=== PATIENT | male | born 1950 | race Caucasian/White ===

== ENCOUNTER → 2022-09-06 10:01 | Outpatient (CLI) | payer MEDICARE, MEDICAID, SELFPAY ==
[2022-09-06 11:03] LABS: Add Manual Diff / Slide Review NO; Basophils Absolute Auto 100 /uL (0-100); Eosinophils Absolute Auto 300 /uL (0-450); Eosinophils Percent Auto 5.3 % (2-4); Hematocrit 41.7 % (41-53); Hemoglobin 14.2 g/dL (13.5-17.5); Lymphocytes Absolute Auto 1000 /uL (1100-4500); Lymphocytes Percent Auto 19.1 % (25-40); Mean Corpuscular HGB Conc 34.2 % (30-36); Mean Corpuscular Hemoglobin 31.9 PG (26-34); Mean Corpuscular Volume 93.3 fL (80-100); Monocytes Absolute Auto 500 /uL (0-900); Neutrophils Absolute Auto 3300 /uL (1500-7000); Neutrophils Percent Auto 64.6 % (50-75); Platelet Count 146 X10^3/uL (150-400); Red Blood Cell Count 4.47 X10^6/uL (4.5-5.9); White Blood Cell Count 5.1 X10^3/uL (4.5-11.0)
[2022-09-06 11:23] LABS: Erythrocyte Sedimentation Rate 10 MM/HR (0-15)
[2022-09-06 12:02] LABS: Albumin 4.1 g/dL (3.5-5.0); Albumin Globulin Ratio 1.3 (1.0-2.8); Aspartate Aminotransferase 26 IU/L (17-59); Bilirubin Total 0.7 mg/dL (0.2-1.3); Carbon Dioxide 22 mmol/L (22-32); Chloride 109 mmol/L (98-107); Estimated Glomerular Filt Rate > 60 mL/min (>60); Globulin 3.1 g/dL (1.7-4.1); HEMOLYSIS < 15 (0-50); Sodium 138 mmol/L (137-145); Total Protein 7.2 g/dL (6.3-8.2)
[2022-09-06 12:52] LABS: Vitamin B12 393 pg/mL (239-931)
[2022-09-06 20:55] LABS: Alanine Aminotransferase 21 IU/L (<50); Alkaline Phosphatase 62 U/L (38-126); BUN Creatinine Ratio 37.3 (6-22); Blood Urea Nitrogen 22 mg/dL (9-20); Calcium 9.4 mg/dL (8.4-10.2); Glucose 105 mg/dL (80-110)
[2022-09-08 13:26] LABS: TSH w/ Reflex to FT4 7.34 uIU/mL (0.47-4.68)
[2022-09-08 14:27] LABS: Free T4, Direct Thyroxine 1.04 ng/dL (0.78-2.19)
[2022-09-08 17:59] LABS: Cholesterol 255 mg/dL (140-199); HDL Cholesterol 72 mg/dL (40-60); LDL Cholesterol Calculated 166 mg/dL (<100); Triglycerides 87 mg/dL (35-150)
[2022-09-08 18:36] LABS: Ferritin 71 ng/mL (18-464)
== END ==
PROVIDERS: PCP Family Medicine; Referring Provider Family Medicine; Visit Provider Family Medicine
DX: G25.81 Restless legs syndrome (principal); F43.10 Post-traumatic stress disorder, unspecified; G62.9 Polyneuropathy, unspecified; Z77.098 Contact with and (suspected) exposure to other hazardous, chiefly nonmedicinal, chemicals
CPT/HCPCS: 36415; 80053; 80061; 82607; 82728; 84439; 84443; 85025; 85651

== ENCOUNTER → 2022-12-08 09:30 | Outpatient (CLI) | payer MEDICARE, MEDICAID, SELFPAY ==
--- NOTE | 2022-12-08 09:32 | DI.RAD.S_ITS ---
PROCEDURE: XR HIP W PEL IF DONE RT 2V INDICATIONS: rt hip pain, previous replacement TECHNIQUE: AP pelvis with AP and lateral view(s) of the right hip(s). COMPARISON: None. FINDINGS: Bones: No fractures or dislocations. Pelvic ring appears intact. No suspicious bony lesions. Bilateral total hip arthroplasties. No evidence of hardware failure or loosening. Soft tissues: The visualized bowel gas pattern is normal. No suspicious soft tissue calcifications. IMPRESSION: Bilateral total hip arthroplasties. No evidence of hardware failure or loosening. No evidence of acute fracture or dislocation involving the pelvis and right hip. Dictated by: Massimo Ledesma M.D. on 12/08/2022 at 11:19 Approved by: Massimo Ledesma M.D. on 12/08/2022 at 11:20
--- NOTE | 2022-12-08 09:32 | DI.RAD.S_ITS ---
PROCEDURE: XR LUMBAR SPINE MIN 4V INDICATIONS: low back pain, leg numbness TECHNIQUE: 5 views of the lumbar spine were acquired, including bilateral oblique views. COMPARISON: None. FINDINGS: Bones: 5 nonrib-bearing vertebrae are present. Moderate dextro curvature is centered L1-L2. Extensive facet arthropathy. Suspect canal stenosis. No vertebral body compression fractures. No suspicious bony lesions. Soft tissues: Overlying bowel gas pattern is normal. No suspicious soft tissue calcifications. Oblique images: No pars defects. IMPRESSION: Dextrocurvature, extensive facet arthropathy. Suspect canal stenosis. Dictated by: Massimo Ledesma M.D. on 12/08/2022 at 11:25 Approved by: Massimo Ledesma M.D. on 12/08/2022 at 11:26
== END ==
PROVIDERS: PCP Family Medicine; Referring Provider Family Medicine; Visit Provider Family Medicine
DX: M47.816 Spondylosis without myelopathy or radiculopathy, lumbar region (principal); M25.551 Pain in right hip; M54.50 Low back pain, unspecified; G89.29 Other chronic pain; Z96.643 Presence of artificial hip joint, bilateral
CPT/HCPCS: 72110; 73502

== ENCOUNTER 2023-03-29 10:52 | Emergency (ER) | payer MEDICARE, MEDICAID, SELFPAY ==
[2023-03-29] VITALS (12 sets, daily range): BP systolic 116–149; BP diastolic 60–81; PULSE 95–110; RESP 17–25; TEMP 37.2–37.3; O2SAT 92–97; BMI 30.7
--- NOTE | 2023-03-29 11:02 | DI.RAD.S_ITS ---
PROCEDURE: XR CHEST 1V INDICATIONS: suspected sepsis TECHNIQUE: One view of the chest was acquired. COMPARISON: None. FINDINGS: Surgical changes and devices: None. Lungs and pleura: Patchy right upper lobe opacities are suspicious for pneumonia. No pleural effusion or pneumothorax. Left lung is clear. Mediastinum: Mediastinal contours appear normal. Heart size is normal. Bones and chest wall: No suspicious bony lesions. Overlying soft tissues appear unremarkable. IMPRESSION: Right upper lobe opacities are suspicious for pneumonia. Approved by: Can Herrera M.D. on 03/29/2023 at 12:20
[2023-03-29 11:56] LABS: Hematocrit 44.7 % (41-53); Hemoglobin 15.3 g/dL (13.5-17.5); Mean Corpuscular HGB Conc 34.1 % (30-36); Mean Corpuscular Hemoglobin 30.8 PG (26-34); Mean Corpuscular Volume 90.4 fL (80-100); Platelet Count 139 X10^3/uL (150-400); Red Blood Cell Count 4.95 X10^6/uL (4.5-5.9); Red Cell Distribution Width 13.6 % (11.6-14.8); White Blood Cell Count 14.5 X10^3/uL (4.5-11.0)
[2023-03-29] MEDS: SODIUM CHLORIDE 0.9% 1,000 ML 1000 ML IV (11:56)
[2023-03-29 12:02] LABS: Add Manual Diff / Slide Review YES
--- NOTE | 2023-03-29 12:02 | PC.NURSE ---
Patient c/o chills for 5 days. Also states abdominal pain, nausea. One episode of vomiting yesterday. Denies chest pain, shortness of breath
[2023-03-29 12:13] LABS: Lactate (Lactic Acid) 1.7 mmol/L (0.7-2.1)
[2023-03-29 12:14] LABS: Alanine Aminotransferase 46 IU/L (<50); Albumin 3.8 g/dL (3.5-5.0); Alkaline Phosphatase 72 U/L (38-126); Aspartate Aminotransferase 49 IU/L (17-59); BUN Creatinine Ratio 42.3 (6-22); Bilirubin Total 1.1 mg/dL (0.2-1.3); Blood Urea Nitrogen 30 mg/dL (9-20); Carbon Dioxide 25 mmol/L (22-32); Chloride 98 mmol/L (98-107); Estimated Glomerular Filt Rate > 60 mL/min (>60); Globulin 3.8 g/dL (1.7-4.1); Glucose 141 mg/dL (80-110); Lipase 12 U/L (23-300); Sodium 132 mmol/L (137-145); Total Protein 7.6 g/dL (6.3-8.2)
[2023-03-29 12:15] LABS: HEMOLYSIS 88 (0-50); Neutrophils Absolute Manual 12905 /uL (3000-5900); Total Cells Counted 100
[2023-03-29 12:16] LABS: RBC Morphology Normal Morphology
[2023-03-29 12:21] LABS: INR 1.4 (0.9-1.3); Prothrombin Time 16.5 SECONDS (10.1-12.7)
[2023-03-29 12:24] LABS: PTT Partial Thromboplastin Tim 35 SECONDS (26-36)
--- NOTE | 2023-03-29 12:27 | ED_ITS ---
HPI - Fever General Chief Complaint: Fever Stated Complaint: vomiting/fever t-4 Time Seen by Provider: 03/29/23 11:15 Source: patient Mode of arrival: Wheelchair History of Present Illness HPI Narrative: Patient is a 72-year-old male history of hyperlipidemia, marijuana use, per referral neuropathy PTSD presenting today with fever body aches and weakness. He reports that 3 days ago he had shivers and sweats. He feels generally weak he has poor appetite. No significant cough or shortness of breath. He feels nauseated with some vomiting. Not really able to eat anything. No significant abdominal pain or back pain. No headache. Denies any painful frequent urination. Related Data Previous Rx's Medication Instructions Recorded ropinirole 4 mg tablet 4 mg PO BID RLS #60 tabs 12/03/22 ropinirole 2 mg tablet,extended 2 mg PO DAILY #30 tabs 12/29/22 release 24 hr celecoxib 100 mg capsule (Celebrex) 100 mg PO BID PRN pain #180 caps 02/01/23 pregabalin 150 mg capsule (Lyrica) 150 mg PO BEDTIME #60 caps 02/28/23 tramadol 50 mg tablet 50 mg PO BID PRN pain #30 tabs 02/28/23 amoxicillin 500 mg capsule 1,000 mg PO TID 5 days #30 caps 03/29/23 azithromycin 250 mg tablet See Rx Instructions PO .COMPLEX #6 03/29/23 tabs ondansetron 4 mg disintegrating 4 mg PO Q8H PRN nausea and 03/29/23 tablet vomiting #10 tabs Allergies Allergy/AdvReac Type Severity Reaction Status Date / Time Beta-Blockers Allergy Unknown Verified 03/29/23 10:58 (Beta-Adrenergic Bloc diphenhydramine Allergy Unknown Verified 03/29/23 10:58 Review of Systems Review of Systems ROS Unobtainable: All systems reviewed & are unremarkable except as noted in HPI and below Patient History Medical History Agent orange exposure Arthritis Hyperlipidemia Marijuana use Peripheral neuropathy PTSD (post-traumatic stress disorder) RLS (restless legs syndrome) Subclinical hypothyroidism Social History Smoking Status: Never smoker Smoking Status: Never smoker alcohol intake frequency: holidays/special occasions only Substance Use Type: does not use Exam Initial Vital Signs Initial Vital Signs: Vital Signs Temperature 99.0 F 03/29/23 10:58 Pulse Rate 110 H 03/29/23 10:58 Respiratory Rate 17 03/29/23 10:58 Blood Pressure 144/77 H 03/29/23 10:58 Pulse Oximetry 96 03/29/23 10:58 Oxygen Delivery Method Room Air 03/29/23 10:58 GENERAL: Alert pleasant 82-year-old male appears slightly weak and in no acute distress. HEENT: Head atraumatic,EOMI, pupils reactive, face symmetric, moist mucous m embranes CARDIOVASCULAR: Regular rate and rhythm without murmurs, rubs or gallops. RESPIRATORY: Mildly coarse at bases no conversational dyspnea ABDOMEN: Soft, nontender. Normoactive bowel sounds all 4 quadrants. No guarding or rebound. EXTREMITIES: Normal range of motion, no clubbing or edema. Neurovascularly intact NEUROLOGICAL: Alert and oriented x4. SKIN: Warm, dry, no laceration, no petechiae, no rashes or lesions. Scores CURB-65 Confusion: No BUN >19mg/dL (>7mmol/L): Yes Respiratory rate greater or equal to 30: No SBP <90mmHg or DBP less or equal to 60mmHg: No Age 65 or Older: Yes CURB-65 Total: 2 Score 0-1 Outpatient care, Score 2 Inpt vs. Obs, Score 3 or over Inpt admit with ICU for score of 4-5 Course Orders Ordered: ED Orders 03/29/23 11:02 XR chest 1V Stat RT Consult Eval and Treat NOW 03/29/23 11:21 EKG-12 Lead Stat 03/29/23 11:37 Complete Blood Count AUTO DIFF Stat Comprehensive Metabolic Panel Stat Lactate (Lactic Acid) Stat Lipase Stat PTT Partial Thromboplastin Georges Stat Procalcitonin Stat Prothrombin Time INR Stat 03/29/23 12:09 Blood Culture Stat 03/29/23 12:18 Ictotest Urine Stat UA Complete [Urinalysis and Microscopic] Stat 03/29/23 12:34 Covid-19 + FLU A/B + RSV - PCR Stat Discontinued Medications Acetaminophen (Acetaminophen 325 Mg Tablet) 975 mg PO NOW ONE Stop: 03/29/23 12:35 Last Admin: 03/29/23 12:49 Dose: 975 mg Documented By: LC Sodium Chloride (Normal Saline 0.9%) 1,000 mls @ 1,000 mls/hr IV BOLUS ONE Stop: 03/29/23 12:01 Last Infusion: 03/29/23 13:26 Dose: 0 mls/hr Documented By: Admin: 03/29/23 11:56 Dose: 1,000 mls/hr Documented By: MARÍA(2) Ceftriaxone Sodium 1,000 mg/ (Sodium Chloride) 100 mls @ 200 mls/hr IV NOW ONE Stop: 03/29/23 12:35 Last Infusion: 03/29/23 13:26 Dose: 0 mls/hr Documented By: Admin: 03/29/23 12:50 Dose: 200 mls/hr Documented By: QUINN Azithromycin 500 mg/ Dextrose 250 mls @ 250 mls/hr IV NOW ONE Stop: 03/29/23 12:35 Last Infusion: 03/29/23 14:58 Dose: 0 mls/hr Documented By: AMSanthosh Admin: 03/29/23 13:39 Dose: 250 mls/hr Documented By: AMU Ondansetron HCl (Ondansetron 4 Mg/2 Ml Inj) 4 mg IV NOW PRN PRN Reason: Nausea And Vomiting Vital Signs Vital signs: Vital Signs - 8 hr 03/29/23 14:07 03/29/23 12:00 03/29/23 14:07 Temperature 99.2 F Pulse Rate 100 H 102 H 98 H Respiratory Rate 22 Blood Pressure 123/60 137/66 Pulse Oximetry 93 94 93 Oxygen Delivery Method Room Air Room Air 03/29/23 14:08 03/29/23 14:08 03/29/23 12:30 Temperature Pulse Rate 105 H 100 H Respiratory Rate 25 H Blood Pressure 116/67 149/81 H Pulse Oximetry 93 97 Oxygen Delivery Method Room Air 03/29/23 13:00 03/29/23 13:30 03/29/23 14:00 Temperature Pulse Rate 104 H 100 H 98 H Respiratory Rate Blood Pressure 127/67 130/65 123/60 Pulse Oximetry 95 95 93 Oxygen Delivery Method Room Air Room Air Room Air 03/29/23 14:15 03/29/23 14:15 03/29/23 14:30 Temperature Pulse Rate 97 H Respiratory Rate 23 Blood Pressure 128/65 116/65 Pulse Oximetry 93 Oxygen Delivery Method 03/29/23 14:30 03/29/23 14:45 03/29/23 14:45 Temperature Pulse Rate 102 H 95 H 96 H Respiratory Rate 24 22 Blood Pressure 121/68 Pulse Oximetry 92 93 Oxygen Delivery Method MDM - Fever Lab Data 03/29/23 11:37 03/29/23 11:37 Labs: Lab Results 03/29/23 03/29/23 03/29/23 Range/Units 11:37 11:37 11:37 WBC 14.5 H (4.5-11.0) X10^3/uL RBC 4.95 (4.5-5.9) X10^6/uL Hgb 15.3 (13.5-17.5) g/dL Hct 44.7 (41-53) % MCV 90.4 (80-100) fL MCH 30.8 (26-34) PG MCHC 34.1 (30-36) % RDW 13.6 (11.6-14.8) % Plt Count 139 L (150-400) X10^3/uL Neut % (Auto) Not Reportable Lymph % (Auto) Not Reportable Allen % (Auto) Not Reportable Eos % (Auto) Not Reportable Baso % (Auto) Not Reportable Lymph # (Auto) Not Reportable Allen # (Auto) Not Reportable Baso # (Auto) Not Reportable Total Counted 100 Seg Neutrophils % 89.0 H (38-70) % Lymphocytes % (Manual) 3.0 L (25-45) % Monocytes % (Manual) 7.0 (2-11) % Eosinophils % (Manual) 1.0 L (2-4) % Neutrophils # (Manual) 22828 H (1341-7285) /uL RBC Morphology Normal morphology PT 16.5 H (10.1-12.7) SECONDS INR 1.4 H (0.9-1.3) APTT 35 (26-36) SECONDS Sodium 132 L (137-145) mmol/L Potassium 4.0 (3.4-5.1) mmol/L Chloride 98 (98-107) mmol/L Carbon Dioxide 25 (22-32) mmol/L BUN 30 H (9-20) mg/dL Creatinine 0.71 (0.66-1.25) mg/dL Estimated GFR > 60 (>60) mL/min BUN/Creatinine Ratio 42.3 H (6-22) Glucose 141 H (80-110) mg/dL Lactate (0.7-2.1) mmol/L Calcium 9.0 (8.4-10.2) mg/dL Total Bilirubin 1.1 (0.2-1.3) mg/dL AST 49 (17-59) IU/L ALT 46 (<50) IU/L Alkaline Phosphatase 72 (38-126) U/L Total Protein 7.6 (6.3-8.2) g/dL Albumin 3.8 (3.5-5.0) g/dL Globulin 3.8 (1.7-4.1) g/dL Albumin/Globulin Ratio 1.0 (1.0-2.8) Lipase 12 L (23-300) U/L Procalcitonin 1.37 H (<0.5) ng/mL Urine Color Urine Appearance Urine pH (4.5-8.0) Ur Specific [place] (1.000-1.035) Urine Protein (Negative) Urine Glucose (UA) (Negative) g/dL Urine Ketones (NEGATIVE) Urine Occult Blood (Negative) Urine Nitrate (Negative) Urine Bilirubin (NEGATIVE) Ur Bilirubin Confirm (Negative) Urine Urobilinogen (0.2) E.U./dL Ur Leukocyte Esterase (NEGATIVE) Urine RBC (0-5/HPF) Urine WBC (0-5/HPF) Ur Squamous Epith Cells (0-5/HPF) Urine Bacteria (None) Urine Mucus (Negative) Ur Culture Indicated? SARS-CoV-2 (PCR) (Negative) Influenza A (RT-PCR) (NEGATIVE) Influenza B (RT-PCR) (NEGATIVE) RSV (PCR) (Negative) 03/29/23 03/29/23 03/29/23 Range/Units 11:37 12:18 12:34 WBC (4.5-11.0) X10^3/uL RBC (4.5-5.9) X10^6/uL Hgb (13.5-17.5) g/dL Hct (41-53) % MCV (80-100) fL MCH (26-34) PG MCHC (30-36) % RDW (11.6-14.8) % Plt Count (150-400) X10^3/uL Neut % (Auto) Lymph % (Auto) Allen % (Auto) Eos % (Auto) Baso % (Auto) Lymph # (Auto) Allen # (Auto) Baso # (Auto) Total Counted Seg Neutrophils % (38-70) % Lymphocytes % (Manual) (25-45) % Monocytes % (Manual) (2-11) % Eosinophils % (Manual) (2-4) % Neutrophils # (Manual) (1053-3150) /uL RBC Morphology PT (10.1-12.7) SECONDS INR (0.9-1.3) APTT (26-36) SECONDS Sodium (137-145) mmol/L Potassium (3.4-5.1) mmol/L Chloride (98-107) mmol/L Carbon Dioxide (22-32) mmol/L BUN (9-20) mg/dL Creatinine (0.66-1.25) mg/dL Estimated GFR (>60) mL/min BUN/Creatinine Ratio (6-22) Glucose (80-110) mg/dL Lactate 1.7 (0.7-2.1) mmol/L Calcium (8.4-10.2) mg/dL Total Bilirubin (0.2-1.3) mg/dL AST (17-59) IU/L ALT (<50) IU/L Alkaline Phosphatase (38-126) U/L Total Protein (6.3-8.2) g/dL Albumin (3.5-5.0) g/dL Globulin (1.7-4.1) g/dL Albumin/Globulin Ratio (1.0-2.8) Lipase (23-300) U/L Procalcitonin (<0.5) ng/mL Urine Color Yellow Urine Appearance Cloudy Urine pH 5.5 (4.5-8.0) Ur Specific [place] >=1.030 H (1.000-1.035) Urine Protein 3+ H (Negative) Urine Glucose (UA) Negative (Negative) g/dL Urine Ketones 2+ H (NEGATIVE) Urine Occult Blood 2+ H (Negative) Urine Nitrate Negative (Negative) Urine Bilirubin 1+ H (NEGATIVE) Ur Bilirubin Confirm Negative (Negative) Urine Urobilinogen 1.0 (0.2) E.U./dL Ur Leukocyte Esterase Negative (NEGATIVE) Urine RBC 1-5/hpf (0-5/HPF) Urine WBC 1-5/hpf (0-5/HPF) Ur Squamous Epith Cells 1-5 /hpf (0-5/HPF) Urine Bacteria None seen (None) Urine Mucus 2+ H (Negative) Ur Culture Indicated? Cult not indicated SARS-CoV-2 (PCR) Negative (Negative) Influenza A (RT-PCR) Flu a negative (NEGATIVE) Influenza B (RT-PCR) Flu b negative (NEGATIVE) RSV (PCR) Negative (Negative) Imaging Data Chest x-ray: Radiologist's Impression: PROCEDURE:? XR CHEST 1V ? INDICATIONS:? suspected sepsis ? TECHNIQUE:? One view of the chest was acquired.? ? COMPARISON:? None. ? FINDINGS:? ? Surgical changes and devices:? None.? ? Lungs and pleura:? Patchy right upper lobe opacities are suspicious for pneumonia.? No pleural effusion or pneumothorax.? Left lung is clear. ? Mediastinum:? Mediastinal contours appear normal.? Heart size is normal.? ? Bones and chest wall:? No suspicious bony lesions.? Overlying soft tissues appear unremarkable.? ? IMPRESSION:? Right upper lobe opacities are suspicious for pneumonia. ? ? ? Approved by: Can Herrera M.D. on 03/29/2023 at 12:20? ECG Data Interpretation: Sinus tachycardia with PVC heart rate 103 IL interval 182 QRS [address] changes no priors to compare MDM Narrative Medical decision making narrative: Patient 72-year-old male presenting with increasing weakness decreasing oral intake low-grade fever concern for sepsis. He is mildly tachycardic. He is found have leukocytosis of 14 with left shift, with pneumonia on x-ray. Procalcitonin is positive at 1.37, lactic acid 1.7. No evidence of severe sepsis or hypotension. He is not having any respiratory distress or requiring oxygen. Viral panel is negative. He is given a dose of Rocephin and azithromycin for community-acquired pneumonia. Ambulation trial he did not require oxygen have increased tachycardia. Courage 65 score shows inpatient versus outpatient treatment. At this time patient overall feels better would like to go home. I think this is reasonable. He is given Zofran tolerating fluids. Discussed with him return precautions Discharge Plan Departure Patient Disposition: Home Clinical Impression: Pneumonia Instructions: DI for Pneumonia -- Adult Activity Restrictions/Additional Instructions: *You have been diagnosed with pneumonia *What to do: At this time you have pneumonia. Increase fluids as tolerated. *Continue to take medications as directed--> SEnt to [facility] Amoxicillin 1000 mg 3 times a day Azithromycin take as directed Zofran 4 mg every 8 hours if needed for nausea vomiting *Follow up with your primary care provider in 2-3 days or call [phone] *Return to ER if you should have increasing weakness shortness of breath persistent vomiting or confusion or any new, worsening or concerning symptoms Prescriptions: New amoxicillin 500 mg capsule 1,000 mg PO TID 5 Days Qty: 30 0RF azithromycin 250 mg tablet See Rx Instructions PO .COMPLEX Qty: 6 0RF Rx Instructions: For 250 mg dose pack: take 500 mg today (day 1), then 250 mg for 4 days (days 2-5) ondansetron 4 mg tablet,disintegrating 4 mg PO Q8H PRN (Reason: nausea and vomiting) Qty: 10 0RF No Action ropinirole 4 mg tablet 4 mg PO BID Qty: 60 11RF Rx Instructions: (8 mg total/day) celecoxib [Celebrex] 100 mg capsule 100 mg PO BID PRN (Reason: pain) Qty: 180 3RF Rx Instructions: with food ropinirole 2 mg tablet extended release 24 hr 2 mg PO DAILY Qty: 30 11RF Rx Instructions: pt takes 7 mg total/day tramadol 50 mg tablet 50 mg PO BID PRN (Reason: pain) Qty: 30 5RF Rx Instructions: to last 30 days pregabalin [Lyrica] 150 mg capsule 150 mg PO BEDTIME Qty: 60 5RF Referrals: Roberto Portillo DO [Primary Care Provider] - Stand Alone Forms: Patient Portal/API
[2023-03-29 12:29] LABS: Procalcitonin 1.37 ng/mL (<0.5)
[2023-03-29] MEDS: ACETAMINOPHEN 325 MG TABLET 975 MG PO (12:49)
[2023-03-29] MEDS: cefTRIAXone 1,000 MG in SODIUM CHLORIDE 0.9% 100 ML 200 MG IV (12:50)
[2023-03-29 13:39] LABS: COVID-19 CEPHEID 4-PLEX PCR Negative (Negative); Influenza A - CEPHEID Flu A NEGATIVE (NEGATIVE); Influenza B - CEPHEID Flu B NEGATIVE (NEGATIVE); Respiratory Syncytial Virus Negative (Negative)
[2023-03-29] MEDS: AZITHROMYCIN 500 MG in DEXTROSE 5% IN WATER 250 ML 250 MG IV (13:39)
[2023-03-29 14:17] LABS: Appearance Urine UA CLOUDY; Bilirubin Urine UA 1+ (NEGATIVE); Color Urine UA YELLOW; Glucose Urine UA NEGATIVE (Negative); Ketones Urine UA 2+ (NEGATIVE); Leukocyte Esterase Urine UA NEGATIVE (NEGATIVE); Nitrite Urine UA NEGATIVE (Negative); Occult Blood Urine UA 2+ (Negative); Protein Urine UA 3+ (Negative); Specific Gravity Urine UA >=1.030 (1.000-1.035); pH Urine UA 5.5 (4.5-8.0)
[2023-03-29 14:26] LABS: Bacteria Urine None Seen; Culture Indicated Urine Cult Not Indicated; Ictotest Urine Negative (Negative); Mucus Urine 2+ (Negative); RBC Urine 1-5/HPF (0-5/HPF); Squamous Epithelial Cell Urine 1-5 /HPF (0-5/HPF); WBC Urine 1-5/HPF (0-5/HPF)
== END 2023-03-29 15:16 | disposition home or self-care (01) ==
PROVIDERS: Emergency Provider Emergency Medicine; PCP Family Medicine
DX: J18.9 Pneumonia, unspecified organism (principal); R50.9 Fever, unspecified; R11.2 Nausea with vomiting, unspecified; Z79.899 Other long term (current) drug therapy; Z20.822 Contact with and (suspected) exposure to COVID-19
CPT/HCPCS: 0241U; 36415; 71045; 80053; 81001; 83605; 83690; 84145; 85007; 85025; 85610; 85730; 87040; 93005; 96365; 96367; 99284; J0696

== ENCOUNTER → 2023-04-05 10:27 | Outpatient (CLI) | payer MEDICARE, MEDICAID, SELFPAY ==
--- NOTE | 2023-04-05 | DI.RAD.S_ITS ---
PROCEDURE: XR FOOT RT MIN 3V INDICATIONS: Non-pressure chronic ulcer of other part of right foot with TECHNIQUE: 3 views of the foot were acquired. COMPARISON: None. FINDINGS: Bones: No fractures or dislocations. Mild 1st MTP joint degenerative changes. Tibiotalar joint DJD also present. Possible periarticular erosion base of the 1st digit proximal phalanx. Periarticular lucencies present elsewhere within the foot. Soft tissues: No tibiotalar joint effusion. IMPRESSION: No acute fracture identified. Possible 1st MTP joint erosion. Periarticular lucencies present elsewhere within the foot indeterminate for subchondral cystic change or erosions. Inflammatory arthropathy not excludable. If symptoms persist, follow-up radiographs and/or CT or MRI may be helpful for further evaluation. Dictated by: Can Pereira M.D. on 04/05/2023 at 15:47 Approved by: Can Pereira M.D. on 04/05/2023 at 15:58
== END ==
PROVIDERS: PCP Family Medicine; Referring Provider Podiatrist; Visit Provider Podiatrist
DX: L97.519 Non-pressure chronic ulcer of other part of right foot with unspecified severity (principal); M19.071 Primary osteoarthritis, right ankle and foot
CPT/HCPCS: 73630

== ENCOUNTER 2023-05-08 15:16 | Emergency (ER) | payer MEDICARE, MEDICAID, SELFPAY ==
[2023-05-08 15:32] VITALS: BP 136/77; PULSE 98; RESP 18; TEMP 36.6; O2SAT 96; BMI 28.7
--- NOTE | 2023-05-08 18:07 | PC.NURSE ---
Pt calling er multiple times asking when he will be seen and stating he will leave if not seen in 30 minutes, RN talked with pt in waiting room, encouraging pt to stay and providing updates on wait time.
--- NOTE | 2023-05-08 19:11 | ED.WOUNDLAC ---
HPI - Wound/Laceration General Chief Complaint: Wound/Laceration Stated Complaint: LT hand cut open 2hr ago Time Seen by Provider: 05/08/23 18:07 Source: patient Mode of arrival: Ambulatory History of Present Illness HPI narrative: 72-year-old male nonsmoker presents with a chief complaint of an accidental laceration to the thenar eminence of his left hand a few hours ago. He states his tetanus is up-to-date. He was working with a variegated plastic shed when it shattered in his hands and cut him. He has had some bleeding and pain but denies any numbness, tingling or weakness. He has full range of motion and denies any loss of strength in his thumb. He is otherwise well and free of complaint. Related Data Home Medications Medication Instructions Recorded Confirmed celecoxib 200 mg capsule 200 mg PO BID 05/03/23 05/03/23 tamsulosin 0.4 mg capsule 0.8 mg PO DAILY 05/03/23 05/03/23 Previous Rx's Medication Instructions Recorded tramadol 50 mg tablet 50 mg PO BID PRN pain #30 tabs 02/28/23 ondansetron 4 mg disintegrating 4 mg PO Q8H PRN nausea and 03/29/23 tablet vomiting #10 tabs ropinirole 2 mg tablet,extended 2 mg PO DAILY #30 tabs 04/07/23 release 24 hr ropinirole 4 mg tablet,extended 4 mg PO DAILY #30 tabs 04/07/23 release 24 hr pregabalin 100 mg capsule (Lyrica) 100 mg PO BID #60 caps 05/03/23 cephalexin 500 mg capsule 500 mg PO Q6H 7 days #28 caps 05/08/23 Allergies Allergy/AdvReac Type Severity Reaction Status Date / Time Beta-Blockers Allergy Unknown Verified 05/03/23 11:19 (Beta-Adrenergic Bloc diphenhydramine Allergy Unknown Verified 05/03/23 11:19 Review of Systems Review of Systems Narrative: GENERAL: Denies chills, fatigue, malaise, fever, sweats. HEENT: Denies sinus pain, ear pain, sore throat, difficulty swallowing, dizziness. RESPIRATORY: Denies dyspnea, cough, wheezing, hemoptysis, sputum. CARDIOVASCULAR: Denies chest pain, palpitations, orthopnea, edema, GASTROINTESTINAL: Denies nausea, vomiting, abdominal pain, diarrhea, constipation, melena. : Denies dysuria, frequency, incontinence, hematuria, urinary retention. MUSCULOSKELETAL: denies weakness, joint pain, or bony pain SKIN: See HPI NEUROLOGIC: Denies weakness, headache, numbness, change in speech, confusion, seizures, incoordination. PSYCHIATRIC: No concerning psychosocial issues. 12 point review of systems is negative except for those stated above Patient History Medical History Agent orange exposure Arthritis BPH (benign prostatic hyperplasia) Hyperlipidemia Marijuana use Peripheral neuropathy PTSD (post-traumatic stress disorder) RLS (restless legs syndrome) Subclinical hypothyroidism Social History Smoking Status: Never smoker Smoking Status: Never smoker alcohol intake frequency: holidays/special occasions only Substance Use Type: marijuana Exam Narrative Exam Narrative: GENERAL: [72] year old patient appears stated age. Well-developed patient, in mild distress. HEAD: Atraumatic. Normocephalic. EYES: Pupils equal round and reactive. Extraocular motions intact. No scleral icterus. No injection or drainage. ENT: Nose without bleeding, purulent drainage. Throat without erythema, tonsillar hypertrophy or exudate. Airway patent. NECK: Trachea midline. Non tender CARDIOVASCULAR: Regular rate and rhythm without murmurs, gallops, or rubs. RESPIRATORY: Clear to auscultation. Breath sounds equal bilaterally. No wheezes, rales, or rhonchi. GASTROINTESTINAL: Abdomen soft, non-tender, nondistended. EXTREMITIES: Left hand has 4 cm laceration overlying thenar eminence with minimal bleeding, no obvious foreign body, visualized in bloodless field and no tendon or bone involvement. BACK: Nontender without deformity or crepitance. No flank tenderness. NEURO: AOx3. SKIN: No rash or erythema of visible areas Initial Vital Signs Initial Vital Signs: Vital Signs Temperature 97.8 F 05/08/23 15:32 Pulse Rate 98 H 05/08/23 15:32 Respiratory Rate 18 05/08/23 15:32 Blood Pressure 136/77 05/08/23 15:32 Pulse Oximetry 96 05/08/23 15:32 Oxygen Delivery Method Room Air 05/08/23 15:32 Procedures Laceration Repair Laceration 1: Site: hand Side (If applicable): left Size (cm): 4 Description: linear Depth: simple, single layer Local Anesthetic: lidocaine 2% Amount of anesthesia used (mL): 4 Pre-repair: wound explored and cleansed with chlorhexadine Skin layer closed with: nylon Skin layer suture size: 4-0 Number of sutures: 6 Technique: simple, interrupted and horizontal mattress Course Vital Signs Vital signs: Vital Signs - 8 hr 05/08/23 15:32 05/08/23 19:31 Temperature 97.8 F Pulse Rate 98 H 96 H Respiratory Rate 18 Blood Pressure 136/77 156/84 H Pulse Oximetry 96 98 Oxygen Delivery Method Room Air Room Air MDM - Wound/Laceration MDM Narrative Medical decision making narrative: [72] year old patient presents with accidental laceration to left hand Prior Charts reviewed in our EMR Primary Historian: patient History and physical exam are reassuring, tetanus is up-to-date, no tendon or bone involvement. Cleaned at bedside, sutures placed and antibiotics sent to his pharmacy of choice Findings and discharge diagnosis discussed with patient/family followed by verbalization of understanding Return precautions discussed with patient/family whom verbalize understanding of diagnosis and plan Discharge Plan Departure Patient Disposition: Home Clinical Impression: Laceration of left hand Instructions: DI for Laceration Repair Activity Restrictions/Additional Instructions: Please keep the wound clean and dry to the best of your ability. Please monitor for signs of infection such as redness to the skin or increasing pain. Have the sutures/kali removed by your doctor in about 7-10 days. If you are unable to get into your doctor, we would be happy to remove the sutures/kali in that same timeframe. Prescriptions: New cephalexin 500 mg capsule 500 mg PO Q6H 7 Days Qty: 28 0RF No Action ropinirole 4 mg tablet extended release 24 hr 4 mg PO DAILY Qty: 30 0RF ropinirole 2 mg tablet extended release 24 hr 2 mg PO DAILY Qty: 30 0RF Rx Instructions: take at bedtime tramadol 50 mg tablet 50 mg PO BID PRN (Reason: pain) Qty: 30 5RF Rx Instructions: to last 30 days tamsulosin 0.4 mg capsule 0.8 mg PO DAILY celecoxib 200 mg capsule 200 mg PO BID pregabalin [Lyrica] 100 mg capsule 100 mg PO BID Qty: 60 5RF Rx Instructions: discontinue the 150 mg ondansetron 4 mg tablet,disintegrating 4 mg PO Q8H PRN (Reason: nausea and vomiting) Qty: 10 0RF Referrals: Roberto Portillo DO [Primary Care Provider] - Stand Alone Forms: Patient Portal/API
[2023-05-08 19:31] VITALS: BP 156/84; PULSE 96; O2SAT 98
== END 2023-05-08 19:35 | disposition home or self-care (01) ==
PROVIDERS: Emergency Provider Emergency Medicine; PCP Family Medicine
DX: S61.412A Laceration without foreign body of left hand, initial encounter (principal); W26.9XXA Contact with unspecified sharp object(s), initial encounter
CPT/HCPCS: 12002; 99283

== ENCOUNTER → 2023-10-11 14:33 | Outpatient (CLI) | payer OTHER, MEDICAID, SELFPAY ==
[2023-10-11 16:29] LABS: Prostate Specific Antigen 1.72 ng/mL (0.10-4.00)
== END ==
PROVIDERS: PCP Family Medicine; Referring Provider Specialist; Visit Provider Specialist
DX: N40.0 Benign prostatic hyperplasia without lower urinary tract symptoms (principal)
CPT/HCPCS: 36415; 84153

== ENCOUNTER → 2023-11-04 10:21 | Outpatient (CLI) | payer OTHER, MEDICAID, SELFPAY ==
[2023-11-04 12:01] LABS: TSH w/ Reflex to FT4 1.74 uIU/mL (0.47-4.68)
[2023-11-07 11:12] LABS: Fecal Immunochemical Test Negative (Negative)
== END ==
PROVIDERS: PCP Family Medicine; Referring Provider Family Medicine; Visit Provider Family Medicine
DX: E03.8 Other specified hypothyroidism (principal); Z12.11 Encounter for screening for malignant neoplasm of colon
CPT/HCPCS: 36415; 82274; 84443

== ENCOUNTER 2024-01-01 19:59 | Emergency (ER) | payer OTHER, MEDICAID, SELFPAY ==
[2024-01-01] VITALS (7 sets, daily range): BP systolic 90–158; BP diastolic 56–71; PULSE 81–107; RESP 18–20; TEMP 36.6; O2SAT 96–97; BMI 29.5
--- NOTE | 2024-01-01 20:26 | DI.RAD.S_ITS ---
PROCEDURE: XR HIP W PEL IF DONE RT 2V INDICATIONS: R hip pain after fall TECHNIQUE: AP pelvis with lateral view(s) of the right hip(s). COMPARISON: [facility], CR, XR HIP W PEL IF DONE RT 2V, 12/08/2022, 9:43. FINDINGS: Bones: Bilateral hip arthroplasties. The joints are congruent. No acute hip or pelvic fractures. Moderate degenerative disc and endplate changes in the visible lumbar spine. Soft tissues: The visualized bowel gas pattern is normal. Calcifications superior to the right acetabulum are stable, nonacute. No suspicious soft tissue calcifications. IMPRESSION: No acute bony abnormality. Normal alignment of both hip prostheses. Dictated by: Donita Mills M.D. on 01/01/2024 at 21:51 Approved by: Donita Mills M.D. on 01/01/2024 at 21:52
--- NOTE | 2024-01-01 20:26 | ED.LOWEXIN ---
HPI - Extremity Injury (Lower) General Chief Complaint: Extremity Injury, Lower Stated Complaint: rt side hip/leg inj/artificial rt hip Time Seen by Provider: 01/01/24 20:17 Source: patient Mode of arrival: Wheelchair History of Present Illness HPI Narrative: Patient is a 73-year-old male here for evaluation a right hip/hamstring injury. Patient states that he got his foot caught in a root while walking and fell forward. Had immediate pain in the back of his leg. Is having quite a bit of muscle spasms and right hip pain. There is also bulging in the back of his leg. Reports no other injuries from the event. No knee pain. No ankle pain. Did not hit his head. He has had his right hip replaced Related Data Home Medications Medication Instructions Recorded Confirmed ropinirole 1 mg tablet 2 mg PO ONCE 07/05/23 11/01/23 Previous Rx's Medication Instructions Recorded ondansetron 4 mg disintegrating 4 mg PO Q8H PRN nausea and 03/29/23 tablet vomiting #10 tabs ropinirole 2 mg tablet,extended 2 mg PO DAILY #30 tabs 04/07/23 release 24 hr celecoxib 200 mg capsule 200 mg PO BID PRN pain #180 caps 08/16/23 tamsulosin 0.4 mg capsule 0.8 mg (2 x 0.4 mg) PO DAILY #180 08/16/23 caps tramadol 50 mg tablet 50 mg PO BID PRN pain #30 tabs 09/06/23 pregabalin 100 mg capsule (Lyrica) 100 mg PO BID #60 caps 11/11/23 cyclobenzaprine 10 mg tablet 10 mg PO TID PRN muscle spasm #14 01/01/24 tabs hydrocodone 5 mg-acetaminophen 325 1 tab PO Q4-6H PRN pain #10 tabs 01/01/24 mg tablet Allergies Allergy/AdvReac Type Severity Reaction Status Date / Time Beta-Blockers Allergy Unknown Verified 11/01/23 15:07 (Beta-Adrenergic Bloc diphenhydramine Allergy Unknown Verified 11/01/23 15:07 Review of Systems Constitutional Constitutional: Reports system reviewed and no additional complaints, except as documented Musculoskeletal Musculoskeletal: Reports system reviewed and no additional complaints, except as documented Integumentary/Breasts Skin/Breast: Reports system reviewed and no additional complaints, except as documented Neurologic Neurologic: Reports system reviewed and no additional complaints, except as documented Patient History Medical History BPH w urinary obs/LUTS BPH (benign prostatic hyperplasia) Arthritis Subclinical hypothyroidism Hyperlipidemia Marijuana use RLS (restless legs syndrome) PTSD (post-traumatic stress disorder) Agent orange exposure Peripheral neuropathy Social History Smoking Status: Never smoker Smoking Status: Never smoker alcohol intake frequency: holidays/special occasions only Substance Use Type: marijuana Exam Initial Vital Signs Initial Vital Signs: Vital Signs Temperature 97.9 F 01/01/24 20:02 Pulse Rate 107 H 01/01/24 20:02 Respiratory Rate 18 01/01/24 20:02 Blood Pressure 90/70 01/01/24 20:02 Pulse Oximetry 96 01/01/24 20:02 Oxygen Delivery Method Room Air 01/01/24 20:02 Neuro Sensory Exam: no sensory deficits noted Extrem Other: Patient does have tenderness to palpation of the posterior aspect of the right hip. Also has tenderness along the medial and lateral hamstrings with a fullness located in the inferior aspect this. The hamstring tendons around the posterior aspect of the knee. To be intact. Course Orders Ordered: ED Orders 01/01/24 20:08 Consult to CUP[employer]A T[employer]PER - Early Learning Teacher Stat 01/01/24 20:26 XR femur RT min 2V Stat XR hip w pel if done RT 2V Stat Discontinued Medications Hydrocodone Bitart/Acetaminophen (Hydrocodone/Acet 5/325 Prepack) 1 bottle MISC DIRECTED ONE Stop: 01/01/24 22:03 Last Admin: 01/01/24 22:10 Dose: 1 bottle Documented By: MATIAS Cyclobenzaprine HCl (Cyclobenzaprine 10 Mg Prepack) 1 bottle MISC DIRECTED ONE Stop: 01/01/24 22:03 Last Admin: 01/01/24 22:10 Dose: 1 bottle Documented By: MATIAS Hydromorphone HCl (Hydromorphone 1 Mg Inj) 1 mg IV NOW ONE Stop: 01/01/24 20:29 Last Admin: 01/01/24 20:32 Dose: 1 mg Documented By: MATIAS Vital Signs Vital signs: Vital Signs - 8 hr 01/01/24 20:02 01/01/24 20:16 01/01/24 20:16 Temperature 97.9 F Pulse Rate 107 H 92 H Respiratory Rate 18 Blood Pressure 90/70 153/71 H Pulse Oximetry 96 97 Oxygen Delivery Method Room Air 01/01/24 20:30 01/01/24 20:32 01/01/24 20:32 Temperature Pulse Rate 92 H 93 H Respiratory Rate 18 Blood Pressure 158/63 H Pulse Oximetry 97 97 Oxygen Delivery Method 01/01/24 21:00 01/01/24 21:30 01/01/24 21:30 Temperature Pulse Rate 86 Respiratory Rate 20 Blood Pressure 107/56 L 113/65 Pulse Oximetry 97 Oxygen Delivery Method 01/01/24 22:00 01/01/24 22:00 Temperature Pulse Rate 81 Respiratory Rate 18 Blood Pressure 113/66 Pulse Oximetry 97 Oxygen Delivery Method MDM - Extremity Injury (Lower) Imaging Data Extremity x-ray #1: Radiologist's Impression: PROCEDURE: XR FEMUR RT MIN 2V INDICATIONS: R femur pain after fall TECHNIQUE: 2 views of the femur were acquired. COMPARISON: None. FINDINGS: Bones: Hip replacement prosthesis is present in the proximal femur. No visible periprosthetic fracture. No periprosthetic lucency to suggest loosening. Degenerative changes at the knee joint. Soft tissues: No suspicious soft tissue calcifications or masses. IMPRESSION: No fractures or suspicious bone lesions in the femur. Extremity x-ray #2: Radiologist's Impression: PROCEDURE: XR HIP W PEL IF DONE RT 2V INDICATIONS: R hip pain after fall TECHNIQUE: AP pelvis with lateral view(s) of the right hip(s). COMPARISON: [facility], , XR HIP W PEL IF DONE RT 2V, 12/08/2022, 9:43. FINDINGS: Bones: Bilateral hip arthroplasties. The joints are congruent. No acute hip or pelvic fractures. Moderate degenerative disc and endplate changes in the visible lumbar spine. Soft tissues: The visualized bowel gas pattern is normal. Calcifications superior to the right acetabulum are stable, nonacute. No suspicious soft tissue calcifications. IMPRESSION: No acute bony abnormality. Normal alignment of both hip prostheses. [facility] Narrative Medical decision making narrative: X-ray shows no fractures or dislocation. Given the appearance the back of his leg in the palpation I have some suspicion that he is at least partially torn his hamstring muscles. There does appear to be a ball of muscle located in the inferior aspect. Patient does report some improvement of symptoms after medications here in the ER. Patient stated that he did not need crutches or a walker as he does have a cane that he can use. Was sent home with symptom treatment. Advised that he contact Orthopedics for follow-up. He was given return precautions. He expressed understanding and agreement. Discharge Plan Departure Patient Disposition: Home Clinical Impression: Right hamstring injury Activity Restrictions/Additional Instructions: No fractures were noted on the x-ray so you can walk on your leg as tolerated. You may need to use your cane. Wrapping your upper leg with an Santiago bandage maybe helpful as well. Use the pain medication and muscle relaxers as needed. Contact the orthopedic doctor at the number provided below for a follow-up. Return to the emergency department for new symptoms. Prescriptions: New hydrocodone-acetaminophen 5-325 mg tablet 1 tab PO Q4-6H PRN (Reason: pain) Qty: 10 0RF cyclobenzaprine 10 mg tablet 10 mg PO TID PRN (Reason: muscle spasm) Qty: 14 0RF No Action ropinirole 2 mg tablet extended release 24 hr 2 mg PO DAILY Qty: 30 0RF Rx Instructions: take at bedtime tamsulosin 0.4 mg capsule 0.8 mg PO DAILY Qty: 180 3RF celecoxib 200 mg capsule 200 mg PO BID PRN (Reason: pain) Qty: 180 3RF Rx Instructions: with food pregabalin [Lyrica] 100 mg capsule 100 mg PO BID Qty: 60 5RF ropinirole 1 mg tablet 2 mg PO ONCE tramadol 50 mg tablet 50 mg PO BID PRN (Reason: pain) Qty: 30 5RF Rx Instructions: to last 30 days ondansetron 4 mg tablet,disintegrating 4 mg PO Q8H PRN (Reason: nausea and vomiting) Qty: 10 0RF Referrals: Roberto Portillo DO [Primary Care Provider] - Fermín Dotson MD [Physician] - Stand Alone Forms: Patient Portal/API
[2024-01-01] MEDS: HYDROMORPHONE 1 MG INJ IV (20:32)
--- NOTE | 2024-01-01 20:37 | PC.NURSE ---
pt tripped and fell now c/o pain in the back of the thigh, there is a knot noted to the back of right upper thigh, pt states he is having severe muscle spasms in the leg
[2024-01-01] MEDS: HYDROCODONE/ACET 5/325 PREPACK 1 BOTTLE MISC (22:10)
[2024-01-01] MEDS: CYCLOBENZAPRINE 10 MG PREPACK 1 BOTTLE MISC (22:10)
== END 2024-01-01 22:18 | disposition home or self-care (01) ==
PROVIDERS: Emergency Provider Emergency Medicine; PCP Family Medicine
DX: S89.91XA Unspecified injury of right lower leg, initial encounter (principal); W18.30XA Fall on same level, unspecified, initial encounter
CPT/HCPCS: 36415; 73502; 73552; 96374; 99284; J1170

== ENCOUNTER 2024-01-06 14:02 | Emergency (ER) | payer OTHER, MEDICAID, SELFPAY ==
[2024-01-06 14:37] VITALS: BP 141/61; PULSE 77; RESP 18; TEMP 37; O2SAT 96; BMI 28.7
--- NOTE | 2024-01-06 16:32 | DI.US.S_ITS ---
PROCEDURE: US EXTREMITY NONVASC LOWER RT INDICATIONS: evaluate RLE for active bleeding, suspected hamstring tear TECHNIQUE: Real-time scanning was performed of the right posterior thigh , with image documentation. COMPARISON: None. FINDINGS: There is subcutaneous edema in the posterior right upper extremity in the area of clinical concern. No abnormal vascularity seen with color Doppler flow imaging IMPRESSION: Subcutaneous edema in the posterior right upper extremity. Approved by: Nelsy Bermudez M.D.,Ph.D. on 01/06/2024 at 18:29
[2024-01-06] MEDS: OXYCODONE IR 5 MG TABLET PO (17:09)
--- NOTE | 2024-01-06 18:13 | ED.LOWEXIN ---
HPI - Extremity Injury (Lower) <Sherry Adams PA-C - Last Filed: 01/06/24 19:19> General Chief Complaint: Extremity Injury, Lower Stated Complaint: Rt Leg/hip/butt discoloration/bruised Time Seen by Provider: 01/06/24 15:24 Source: patient Mode of arrival: Ambulatory History of Present Illness HPI Narrative: Patient is a 73-year-old male who was seen in the emergency room on 12/31 and diagnosed with a right hamstring tear after a trip and fall. He had x-ray of his hip and femur that were negative. Was discharged with pain medication and supportive care. He returns today due to significant pain, increasing right lower extremity swelling and increasing right lower extremity hematoma. He reports that it is difficult for him to sit, even to sit on the toilet, because of the pain. They discoloration of his leg has increased significantly and he is worried that the bleeding has continued. He in swollen all the way down to his foot. His hip does not hurt. His ambulation is severely limited by pain. He does not take blood thinners. He denies dizziness. Related Data Home Medications Medication Instructions Recorded Confirmed ropinirole 1 mg tablet 2 mg PO ONCE 07/05/23 11/01/23 Previous Rx's Medication Instructions Recorded ondansetron 4 mg disintegrating 4 mg PO Q8H PRN nausea and 03/29/23 tablet vomiting #10 tabs ropinirole 2 mg tablet,extended 2 mg PO DAILY #30 tabs 04/07/23 release 24 hr celecoxib 200 mg capsule 200 mg PO BID PRN pain #180 caps 08/16/23 tamsulosin 0.4 mg capsule 0.8 mg (2 x 0.4 mg) PO DAILY #180 08/16/23 caps tramadol 50 mg tablet 50 mg PO BID PRN pain #30 tabs 09/06/23 pregabalin 100 mg capsule (Lyrica) 100 mg PO BID #60 caps 11/11/23 cyclobenzaprine 10 mg tablet 10 mg PO TID PRN muscle spasm #14 01/01/24 tabs hydrocodone 5 mg-acetaminophen 325 1 tab PO Q4-6H PRN pain #10 tabs 01/01/24 mg tablet hydrocodone 5 mg-acetaminophen 325 1 tab PO Q6H PRN pain #10 tabs 01/06/24 mg tablet Allergies Allergy/AdvReac Type Severity Reaction Status Date / Time Beta-Blockers Allergy Unknown Verified 01/06/24 14:37 (Beta-Adrenergic Bloc diphenhydramine Allergy Unknown Verified 01/06/24 14:37 Review of Systems <Sherry Adams PA-C - Last Filed: 01/06/24 19:19> Review of Systems ROS Unobtainable: All systems reviewed & are unremarkable except as noted in HPI and below Patient History <Sherry Adams PA-C - Last Filed: 01/06/24 19:19> Medical History BPH w urinary obs/LUTS BPH (benign prostatic hyperplasia) Arthritis Subclinical hypothyroidism Hyperlipidemia Marijuana use RLS (restless legs syndrome) PTSD (post-traumatic stress disorder) Agent orange exposure Peripheral neuropathy Social History Smoking Status: Never smoker Smoking Status: Never smoker alcohol intake frequency: holidays/special occasions only Substance Use Type: marijuana Exam <Sherry Adams PA-C - Last Filed: 01/06/24 19:19> Narrative Exam Narrative: GENERAL: 73 year old patient appears stated age. Well-developed patient, in mild distress. NEURO: AOx3. HEAD: Atraumatic. Normocephalic. EYES: Pupils equal round and reactive. Extraocular motions intact. No scleral icterus. No injection or drainage. ENT: Nose without bleeding or purulent drainage. Airway patent. RESPIRATORY: No distress. EXTREMITIES: 2+ edema of the right lower extremity. There is a large dark hematoma over the right hamstring and ecchymosis down the posterior leg to the mid foot. The hamstring is tender to light palpation. Distal neurovascular exam is intact. Initial Vital Signs Initial Vital Signs: Vital Signs Temperature 98.6 F 01/06/24 14:37 Pulse Rate 77 01/06/24 14:37 Respiratory Rate 18 01/06/24 14:37 Blood Pressure 141/61 H 01/06/24 14:37 Pulse Oximetry 96 01/06/24 14:37 Oxygen Delivery Method Room Air 01/06/24 14:37 <Marisa Brown DO - Last Filed: 01/06/24 19:54> Initial Vital Signs Initial Vital Signs: Vital Signs Temperature 98.6 F 01/06/24 14:37 Pulse Rate 77 01/06/24 14:37 Respiratory Rate 18 01/06/24 14:37 Blood Pressure 141/61 H 01/06/24 14:37 Pulse Oximetry 96 01/06/24 14:37 Oxygen Delivery Method Room Air 01/06/24 14:37 Course <Sherry Adams PA-C - Last Filed: 01/06/24 19:19> Orders Ordered: ED Orders 01/06/24 16:32 US extremity nonvasc lower rt Stat 01/06/24 17:51 BMP [Basic Metabolic Panel] Stat CBC Auto Diff [Complete Blood Count AUTO DIFF] Stat Discontinued Medications Oxycodone HCl (Oxycodone Ir 5 Mg Tablet) 5 mg PO NOW ONE Stop: 01/06/24 16:45 Last Admin: 01/06/24 17:09 Dose: 5 mg Documented By: DEE Vital Signs Vital signs: Vital Signs - 8 hr 01/06/24 14:37 Temperature 98.6 F Pulse Rate 77 Respiratory Rate 18 Blood Pressure 141/61 H Pulse Oximetry 96 Oxygen Delivery Method Room Air <Marisa Brown DO - Last Filed: 01/06/24 19:54> Orders Ordered: ED Orders 01/06/24 16:32 US extremity nonvasc lower rt Stat 01/06/24 17:51 BMP [Basic Metabolic Panel] Stat CBC Auto Diff [Complete Blood Count AUTO DIFF] Stat Discontinued Medications Oxycodone HCl (Oxycodone Ir 5 Mg Tablet) 5 mg PO NOW ONE Stop: 01/06/24 16:45 Last Admin: 01/06/24 17:09 Dose: 5 mg Documented By: DEE Vital Signs Vital signs: Vital Signs - 8 hr 01/06/24 14:37 Temperature 98.6 F Pulse Rate 77 Respiratory Rate 18 Blood Pressure 141/61 H Pulse Oximetry 96 Oxygen Delivery Method Room Air MDM - Extremity Injury (Lower) <Sherry Adams PA-C - Last Filed: 01/06/24 19:19> Lab Data 01/06/24 17:51 01/06/24 17:51 Labs: Lab Results 01/06/24 Range/Units 17:51 WBC 8.1 (4.5-11.0) X10^3/uL RBC 3.91 L (4.5-5.9) X10^6/uL Hgb 12.4 L (13.5-17.5) g/dL Hct 36.7 L (41-53) % MCV 94.0 (80-100) fL MCH 31.7 (26-34) PG MCHC 33.7 (30-36) % RDW 13.4 (11.6-14.8) % Plt Count 164 (150-400) X10^3/uL Neut % (Auto) 75.3 H (50-75) % Lymph % (Auto) 10.6 L (25-40) % Saunders % (Auto) 11.2 (3-14) % Eos % (Auto) 2.3 (2-4) % Baso % (Auto) 0.6 (0-2) % Neut # (Auto) 6100 (1590-8637) /uL Lymph # (Auto) 900 L (2321-5290) /uL Saunders # (Auto) 900 (0-900) /uL Eos # (Auto) 200 (0-450) /uL Baso # (Auto) 0 (0-100) /uL Sodium 138 (137-145) mmol/L Potassium 4.0 (3.4-5.1) mmol/L Chloride 110 H (98-107) mmol/L Carbon Dioxide 25 (22-32) mmol/L BUN 21 H (9-20) mg/dL Creatinine 0.60 L (0.66-1.25) mg/dL Estimated GFR > 60 (>60) mL/min BUN/Creatinine Ratio 35.0 H (6-22) Glucose 105 (80-110) mg/dL Calcium 9.0 (8.4-10.2) mg/dL [facility] Narrative Medical decision making narrative: Multiple etiologies for patient's symptoms considered including, but not limited to: Acute blood loss anemia, active bleeding, hamstring tear Patient is 6 days status post trip and fall and subsequent hamstring injury. He has a significant hematoma with associated ecchymosis and swelling of the right lower extremity. His pain is severe and limiting his daily living. He presents due to concern for increasing dark discoloration and worry about bleeding. He does not take any blood thinners. Vital signs show a normal heart rate and blood pressure, labs with hemoglobin of 12.4 and hematocrit of 36.7, slightly down from previous, which was 9 months ago. No evidence of acute blood loss causing systemic symptoms. Ultrasound completed and pending report. End of shift sign-out to Dr. Brown who will continue care. <Marisa Brown, DO - Last Filed: 01/06/24 19:54> Lab Data Labs: Lab Results 01/06/24 Range/Units 17:51 WBC 8.1 (4.5-11.0) X10^3/uL RBC 3.91 L (4.5-5.9) X10^6/uL Hgb 12.4 L (13.5-17.5) g/dL Hct 36.7 L (41-53) % MCV 94.0 (80-100) fL MCH 31.7 (26-34) PG MCHC 33.7 (30-36) % RDW 13.4 (11.6-14.8) % Plt Count 164 (150-400) X10^3/uL Neut % (Auto) 75.3 H (50-75) % Lymph % (Auto) 10.6 L (25-40) % Saunders % (Auto) 11.2 (3-14) % Eos % (Auto) 2.3 (2-4) % Baso % (Auto) 0.6 (0-2) % Neut # (Auto) 6100 (6861-5686) /uL Lymph # (Auto) 900 L (2567-6469) /uL Saunders # (Auto) 900 (0-900) /uL Eos # (Auto) 200 (0-450) /uL Baso # (Auto) 0 (0-100) /uL Sodium 138 (137-145) mmol/L Potassium 4.0 (3.4-5.1) mmol/L Chloride 110 H (98-107) mmol/L Carbon Dioxide 25 (22-32) mmol/L BUN 21 H (9-20) mg/dL Creatinine 0.60 L (0.66-1.25) mg/dL Estimated GFR > 60 (>60) mL/min BUN/Creatinine Ratio 35.0 H (6-22) Glucose 105 (80-110) mg/dL Calcium 9.0 (8.4-10.2) mg/dL MDM Narrative Medical decision making narrative: Multiple etiologies for patient's symptoms considered including, but not limited to: Acute blood loss anemia, active bleeding, hamstring tear Patient is 6 days status post trip and fall and subsequent hamstring injury. He has a significant hematoma with associated ecchymosis and swelling of the right lower extremity. His pain is severe and limiting his daily living. He presents due to concern for increasing dark discoloration and worry about bleeding. He does not take any blood thinners. Vital signs show a normal heart rate and blood pressure, labs with hemoglobin of 12.4 and hematocrit of 36.7, slightly down from previous, which was 9 months ago. No evidence of acute blood loss causing systemic symptoms. Ultrasound completed and pending report. End of shift sign-out to Dr. Brown who will continue care. LUCRECIA: Patient is seen evaluated by myself. He is able to flex and extend his leg. He does have significant contusion but it good distal pedal pulse. He reports that his blood levels have been off but his platelets are 167 he has not anemic. Ultrasound does not show any active bleeding. I suspect that this is ongoing healing. Discharge Plan Departure Patient Disposition: Home Clinical Impression: Hematoma Instructions: DI for Hematoma (Bruise) Activity Restrictions/Additional Instructions: *You have been diagnosed with hematoma *What to do: Elevate and ice as often as possible this will get better. *Continue to take medications as directed [place] 1 tablet every 6 hours if needed for severe pain *Follow up with your primary care provider in 2-3 days or call [phone] *Return to ER if you should have increasing pain numbness tingling weakness [or] any new, worsening or concerning symptoms Prescriptions: New hydrocodone-acetaminophen 5-325 mg tablet 1 tab PO Q6H PRN (Reason: pain) Qty: 10 0RF No Action ropinirole 2 mg tablet extended release 24 hr 2 mg PO DAILY Qty: 30 0RF Rx Instructions: take at bedtime tamsulosin 0.4 mg capsule 0.8 mg PO DAILY Qty: 180 3RF celecoxib 200 mg capsule 200 mg PO BID PRN (Reason: pain) Qty: 180 3RF Rx Instructions: with food pregabalin [Lyrica] 100 mg capsule 100 mg PO BID Qty: 60 5RF ropinirole 1 mg tablet 2 mg PO ONCE tramadol 50 mg tablet 50 mg PO BID PRN (Reason: pain) Qty: 30 5RF Rx Instructions: to last 30 days ondansetron 4 mg tablet,disintegrating 4 mg PO Q8H PRN (Reason: nausea and vomiting) Qty: 10 0RF hydrocodone-acetaminophen 5-325 mg tablet 1 tab PO Q4-6H PRN (Reason: pain) Qty: 10 0RF cyclobenzaprine 10 mg tablet 10 mg PO TID PRN (Reason: muscle spasm) Qty: 14 0RF Referrals: Roberto Portillo DO [Primary Care Provider] - Stand Alone Forms: Patient Portal/API ED Sign-out <Marisa Brown DO - Last Filed: 01/06/24 19:54> Cosign ED Attending Cosmindyature Attestation: I was available for consultation.
[2024-01-06 18:19] LABS: Add Manual Diff / Slide Review NO; Basophils Absolute Auto 0 /uL (0-100); Basophils Percent Auto 0.6 % (0-2); Eosinophils Absolute Auto 200 /uL (0-450); Eosinophils Percent Auto 2.3 % (2-4); Hematocrit 36.7 % (41-53); Hemoglobin 12.4 g/dL (13.5-17.5); Lymphocytes Absolute Auto 900 /uL (1100-4500); Lymphocytes Percent Auto 10.6 % (25-40); Mean Corpuscular HGB Conc 33.7 % (30-36); Mean Corpuscular Hemoglobin 31.7 PG (26-34); Monocytes Absolute Auto 900 /uL (0-900); Monocytes Percent Auto 11.2 % (3-14); Neutrophils Absolute Auto 6100 /uL (1500-7000); Neutrophils Percent Auto 75.3 % (50-75); Platelet Count 164 X10^3/uL (150-400); Red Blood Cell Count 3.91 X10^6/uL (4.5-5.9); Red Cell Distribution Width 13.4 % (11.6-14.8); White Blood Cell Count 8.1 X10^3/uL (4.5-11.0)
[2024-01-06 18:38] LABS: Blood Urea Nitrogen 21 mg/dL (9-20); Carbon Dioxide 25 mmol/L (22-32); Chloride 110 mmol/L (98-107); Estimated Glomerular Filt Rate > 60 mL/min (>60); Glucose 105 mg/dL (80-110); HEMOLYSIS < 15 (0-50); Sodium 138 mmol/L (137-145)
--- NOTE | 2024-01-06 19:14 | PC.NURSE ---
late entry: patient's right leg from thigh to toes is swollen and bruised. dark purple seen on back of thigh, stops just under buttocks. significant swelling down through foot.
== END 2024-01-06 19:55 | disposition home or self-care (01) ==
PROVIDERS: Physician Assistant; Emergency Provider Emergency Medicine; PCP Family Medicine
DX: S80.11XA Contusion of right lower leg, initial encounter (principal)
CPT/HCPCS: 36415; 76882; 80048; 85025; 99283; 99284

== ENCOUNTER 2024-09-11 15:49 | Emergency (ER) | payer OTHER, MEDICAID, SELFPAY ==
[2024-09-11 15:51] VITALS: BP 152/75; PULSE 87; RESP 16; TEMP 36.6; O2SAT 96; BMI 32.4
--- NOTE | 2024-09-11 16:02 | DI.CT.S_ITS ---
PROCEDURE: CT HEAD/BRAIN WO CON INDICATIONS: fall, head injury, no thinners TECHNIQUE: Noncontrast 4.5 mm thick angled axial sections acquired from the foramen magnum to the vertex, with coronal and sagittal reformats. For radiation dose reduction, the following was used: automated exposure control, adjustment of mA and/or kV according to patient size. COMPARISON: None. FINDINGS: Image quality: Diagnostic. CSF spaces: Basal cisterns are patent. No extra-axial fluid collections. The ventricles are symmetric in size and shape. Brain: No intracranial bleeds or masses. There is cerebral volume loss for age, with resultant ventricular and sulcal prominence. There are periventricular and deep white matter chronic small vessel ischemic changes. There is intracranial internal carotid artery atherosclerosis. Skull and face: Calvarium and visualized facial bones appear intact, without suspicious lesions. Sinuses: Visualized sinuses and mastoids are clear. IMPRESSION: No acute intracranial pathology. Dictated by: Reginaldo Vanessa M.D. on 09/11/2024 at 16:42 Approved by: Reginaldo Vanessa M.D. on 09/11/2024 at 16:42
--- NOTE | 2024-09-11 16:32 | DI.CT.S_ITS ---
PROCEDURE: CT CERVICAL SPINE WO CON INDICATIONS: fall, head injury, no thinners TECHNIQUE: Noncontrast 3 mm thick sections acquired from the skull base to the T4 level. Sagittal and coronal reformats were then constructed. For radiation dose reduction, the following was used: automated exposure control, adjustment of mA and/or kV according to patient size. COMPARISON: None. FINDINGS: Image quality: Excellent. Bones: There is reversal of normal cervical lordosis with apex at C5 level. Minimal 2-3 mm anterolisthesis of C2 on C3, C3 on C4 and C4 on C5 is seen. There is also mild levoscoliosis of thoracic spine with apex at C5-6 level. No acute fracture or dislocation. Degenerative endplate changes, loss of disc height and bilateral uncovertebral hypertrophic changes throughout cervical spine is seen. There is dorsal disc osteophyte complex formation at C4-5, C5-6 and C6-7 levels causing [id number] central canal stenosis and bilateral neural foraminal narrowing. Visualized superior ribs are intact. Soft tissues: Prevertebral soft tissues are normal in thickness. No paravertebral hematomas. No apical pneumothoraces. IMPRESSION: 1. No displaced fracture or traumatic subluxation. 2. Mild levoscoliosis of cervical spine centered at C5-6 level. Reversal of normal cervical lordosis with apex at C5 level. Degenerative disc disease throughout cervical spine with likely degenerative anterolisthesis at C2-3 through C4-L5 levels. Cevi-wv-[id number] central canal stenosis and bilateral neural foraminal narrowing in mid to lower cervical spine as above. Dictated by: Reginaldo Vanessa M.D. on 09/11/2024 at 16:35 Approved by: Reginaldo Vanessa M.D. on 09/11/2024 at 16:42
--- NOTE | 2024-09-11 17:23 | ED_ITS ---
HPI - Fall <Michel De La Garza PA-C - Last Filed: 09/11/24 17:41> General Chief Complaint: Fall Stated Complaint: Fall, head laceration, no blood thinners Time Seen by Provider: 09/11/24 16:55 Source: patient Mode of arrival: Ambulatory History of Present Illness HPI Narrative: 74-year-old male with past medical history BPH, hypothyroidism, hyperlipidemia, RLS, PTSD, peripheral neuropathy presents to the ED status post a mechanical fall sustained just prior to arrival. Patient was using the leaf blower in his yd, his foot slipped and he fell backwards hitting his head on some stone. Patient states he has bleeding from the back of his head. Denies loss of consciousness. No change in vision. Denies neck or back pain. Just endorses some tenderness at the site of the lacerations. Tetanus is up-to-date. Blee ding is controlled with pressure. Patient is not on blood thinners. Related Data Home Medications Medication Instructions Recorded Confirmed ropinirole 1 mg tablet 2 mg PO ONCE 07/05/23 07/23/24 Previous Rx's Medication Instructions Recorded ondansetron 4 mg disintegrating 4 mg PO Q8H PRN nausea and 03/29/23 tablet vomiting #10 tabs ropinirole 2 mg tablet,extended 2 mg PO DAILY #30 tabs 04/07/23 release 24 hr tramadol 50 mg tablet 50 mg PO BID PRN pain #30 tabs 03/16/24 Disabled Parking Permit #1 ea 07/23/24 verapamil 120 mg 24 hr 120 mg PO DAILY #90 caps 07/24/24 capsule,extended release tamsulosin 0.4 mg capsule 0.8 mg (2 x 0.4 mg) PO DAILY #180 08/02/24 caps pregabalin 150 mg capsule (Lyrica) 150 mg PO BID #180 caps 08/24/24 celecoxib 200 mg capsule 200 mg PO BID PRN pain #180 caps 09/11/24 Allergies Allergy/AdvReac Type Severity Reaction Status Date / Time Beta-Blockers Allergy Unknown Verified 07/23/24 16:04 (Beta-Adrenergic Bloc diphenhydramine Allergy Unknown Verified 07/23/24 16:04 Review of Systems <Michel De La Garza PA-C - Last Filed: 09/11/24 17:41> Constitutional Constitutional: Denies chills, Denies fatigue, Denies fever(s), Denies frequent falls, Denies lethargy and Denies weakness Eyes Eyes: Denies change in vision, Denies eye discharge, Denies irritation and Denies loss of vision ENT Ears, Nose, Mouth, and Throat: Denies change in voice, Denies dizziness, Denies neck pain, Denies sore throat and Denies throat swelling Cardiovascular Cardiovascular: Denies chest pain, Denies irregular heart rhythm, Denies lightheadedness, Denies palpitations, Denies dyspnea, Denies dyspnea on exertion and Denies orthopnea Respiratory Respiratory: Denies cough, Denies dyspnea, Denies dyspnea on exertion and Denies wheezing Gastrointestinal Gastrointestinal: Denies abdominal pain, Denies change in bowel habits, Denies diarrhea, Denies nausea and Denies vomiting Musculoskeletal Musculoskeletal: Denies neck pain and Denies numbness Integumentary/Breasts Skin/Breast: Denies pruritus, Denies erythema, Denies rash and Reports wounds Comments: Lacerations to the back of the scalp Neurologic Neurologic: Denies behavioral changes, Denies confusion, Denies dizziness, Denies frequent falls, Denies loss of vision, Denies numbness and Denies weakness Psychiatric Psychiatric: Denies anxiety, Denies behavioral changes, Denies confusion, Denies depression, Denies homicidal ideation and Denies suicidal ideation Endocrine Endocrine: Denies fatigue, Denies flushing and Denies palpitations Hematologic/Lymphatic Hematologic/Lymphatic: Denies easy bruising Allergic/Immunologic Allergic/Immunologic: Denies urticaria, Denies throat swelling and Denies wheezing Patient History <Michel De La Garza PA-C - Last Filed: 09/11/24 17:41> Medical History Encounter for subsequent annual wellness visit (AWV) in Medicare patient BPH w urinary obs/LUTS BPH (benign prostatic hyperplasia) Arthritis Subclinical hypothyroidism Hyperlipidemia Marijuana use RLS (restless legs syndrome) PTSD (post-traumatic stress disorder) Agent orange exposure Peripheral neuropathy Social History Smoking Status: Never smoker Smoking Status: Never smoker alcohol intake frequency: holidays/special occasions only Substance Use Type: marijuana Exam <Michel De La Garza PA-C - Last Filed: 09/11/24 17:41> Narrative Exam Narrative: Const General:?cooperative, healthy appearing and comfortable [facility] Head:?normal to inspection Ears:?hearing grossly normal bilaterally Nose:?external nose normal Face and sinus:?normal facial exam and sinuses nontender Mouth:?oral mucosae normal Throat:?posterior oropharynx normal Eyes General:?appearance normal, both eyes and all related structures Neck Neck:?normal visual inspection and no lymphadenopathy noted Resp Effort & Inspection:?normal respiratory effort Auscultation:?clear to auscultation bilaterally Cardio Rate:?regular rate Rhythm:?regular rhythm Musculoskeletal No midline tenderness to palpation. No paraspinal tenderness to palpation. There is full range of motion. Strength and sensation is intact. Patient is neurovascularly intact. Integumentary There are 2 linear scalp lacerations on the back of the head, each is 1.5 cm. No deeper structures visualized on exam. No skull depressions. Bleeding is controlled with pressure. Neuro General:?patient alert, patient awake and patient oriented x3 Initial Vital Signs Initial Vital Signs: Vital Signs Temperature 97.8 F 09/11/24 15:51 Pulse Rate 87 09/11/24 15:51 Respiratory Rate 16 09/11/24 15:51 Blood Pressure 152/75 H 09/11/24 15:51 Pulse Oximetry 96 09/11/24 15:51 Oxygen Delivery Method Room Air 09/11/24 15:51 <Sharif William MD - Last Filed: 09/11/24 18:57> Initial Vital Signs Initial Vital Signs: Vital Signs Temperature 97.8 F 09/11/24 15:51 Pulse Rate 87 09/11/24 15:51 Respiratory Rate 16 09/11/24 15:51 Blood Pressure 152/75 H 09/11/24 15:51 Pulse Oximetry 96 09/11/24 15:51 Oxygen Delivery Method Room Air 09/11/24 15:51 Procedures <Michel De La Garza PA-C - Last Filed: 09/11/24 17:41> Laceration Repair Laceration 1: Site: scalp Size (cm): 1.5 Description: linear Pre-repair: wound explored, irrigated extensively and deep structures intact Skin layer closed with: kali Number of sutures: 2 Laceration 2: Site: scalp Size (cm): 1.5 Description: linear Skin layer closed with: kali Number of sutures: 2 Course <FREDA Wise Last Filed: 09/11/24 17:41> Orders Ordered: ED Orders 09/11/24 16:02 CT head/brain wo con Stat 09/11/24 16:32 CT cervical spine wo con Stat Vital Signs Vital signs: Vital Signs - 8 hr 09/11/24 15:51 09/11/24 17:45 Temperature 97.8 F Pulse Rate 87 70 Respiratory Rate 16 18 Blood Pressure 152/75 H 139/78 Pulse Oximetry 96 97 Oxygen Delivery Method Room Air Room Air <Sharif William MD - Last Filed: 09/11/24 18:57> Orders Ordered: ED Orders 09/11/24 16:02 CT head/brain wo con Stat 09/11/24 16:32 CT cervical spine wo con Stat Vital Signs Vital signs: Vital Signs - 8 hr 09/11/24 15:51 09/11/24 17:45 Temperature 97.8 F Pulse Rate 87 70 Respiratory Rate 16 18 Blood Pressure 152/75 H 139/78 Pulse Oximetry 96 97 Oxygen Delivery Method Room Air Room Air MDM - Fall <Michel De La Garza PA-C - Last Filed: 09/11/24 17:41> MDM Narrative Medical decision making narrative: 74-year-old male with past medical history BPH, hypothyroidism, hyperlipidemia, RLS, PTSD, peripheral neuropathy presents to the ED status post a mechanical fall sustained just prior to arrival. Concern for laceration versus fracture/dislocation versus intracranial hemorrhage versus other. Obtained CT head and CT C-spine which were without any acute findings. They were 2 scalp l acerations that were repaired with kali. Staple removal, signs of infection, wound care discussed with patient. ED return precautions discussed with patient. Patient verbalized understanding. Medical records reviewed: Yes Discharge Plan Departure Patient Disposition: Home Clinical Impression: Head injury Qualifiers: Encounter type: initial encounter Qualified Code(s): S09.90XA - Unspecified injury of head, initial encounter Instructions: DI for Laceration Repair -- Norco, How to Prevent Falls Activity Restrictions/Additional Instructions: You were evaluated in the ED today for a fall and head injury. Your CT scans of the head and neck were normal. You had 2 lacerations to the back of your scalp which were repaired with a total of 4 kali. The kali will need to be removed in 7 days. You may go to a walk-in clinic, your PCP's office or return to the ED for staple removal. Please keep the wounds clean and dry for the 1st 24 hours, after which you may wash gently with soap and water. Please do not keep wet dressings on your wounds. Please watch for signs of infection including worsening redness, warmth, swelling, discharge, pain. Return to the ED if you note any signs of infection. Prescriptions: No Action ropinirole 2 mg tablet extended release 24 hr 2 mg PO DAILY Qty: 30 0RF Rx Instructions: take at bedtime tramadol 50 mg tablet 50 mg PO BID PRN (Reason: pain) Qty: 30 5RF Rx Instructions: to last 30 days verapamil 120 mg capsule,ext rel. pellets 24 hr 120 mg PO DAILY Qty: 90 3RF tamsulosin 0.4 mg capsule 0.8 mg PO DAILY Qty: 180 3RF pregabalin [Lyrica] 150 mg capsule 150 mg PO BID Qty: 180 1RF celecoxib 200 mg capsule 200 mg PO BID PRN (Reason: pain) Qty: 180 3RF Rx Instructions: with food ropinirole 1 mg tablet 2 mg PO ONCE (DME) Disabled Parking Permit See Rx Instructions .ROUTE .MEDSUPPLY Qty: 1 0RF Rx Instructions: I find this patient to be medically disabled and qualified for Disabled Parking as indicated on the accompanying Disabled Parking Application for Individuals. ondansetron 4 mg tablet,disintegrating 4 mg PO Q8H PRN (Reason: nausea and vomiting) Qty: 10 0RF Referrals: Roberto Portillo DO [Primary Care Provider] - Stand Alone Forms: Patient Portal/API/Survey ED Sign-out <Sharif William MD - Last Filed: 09/11/24 18:57> Cosign ED Attending Amadouature Attestation: I was immediately available in the department for consultation. This documentation has been reviewed and I agree with assessment and plan. Supervised by Sharif William MD
[2024-09-11 17:45] VITALS: BP 139/78; PULSE 70; RESP 18; O2SAT 97
== END 2024-09-11 17:46 | disposition home or self-care (01) ==
PROVIDERS: Emergency Provider Student in an Organized Health Care Education/Training Program; PCP Family Medicine
DX: S01.01XA Laceration without foreign body of scalp, initial encounter (principal); S09.90XA Unspecified injury of head, initial encounter; W18.00XA Striking against unspecified object with subsequent fall, initial encounter
CPT/HCPCS: 12002; 70450; 72125; 99281; 99284

== ENCOUNTER 2024-09-19 10:49 | Emergency (ER) | payer OTHER, MEDICAID, SELFPAY ==
[2024-09-19 11:02] VITALS: BP 149/70; PULSE 74; RESP 18; TEMP 36.9; O2SAT 96; BMI 34.4
--- NOTE | 2024-09-19 11:08 | ED.RECABL ---
HPI - Recheck/Abnormal Lab/Rx <Sherry Flores PA-C - Last Filed: 09/19/24 17:13> General Chief Complaint: Recheck/Abnormal Lab/Rx Stated Complaint: Remove Sandy on top of his head Time Seen by Provider: 09/19/24 11:07 Source: patient Mode of arrival: Ambulatory History of Present Illness HPI narrative: 74-year-old male presents with concern for needing sandy removed from his scalp. Patient had a fall/ injury and was seen in this emergency department 8 days ago and presents today for removal of sandy. He states he has been doing well and denies any other complaints or concerns. Related Data Home Medications Medication Instructions Recorded Confirmed ropinirole 1 mg tablet 2 mg PO ONCE 07/05/23 07/23/24 Previous Rx's Medication Instructions Recorded ondansetron 4 mg disintegrating 4 mg PO Q8H PRN nausea and 03/29/23 tablet vomiting #10 tabs ropinirole 2 mg tablet,extended 2 mg PO DAILY #30 tabs 04/07/23 release 24 hr Disabled Parking Permit #1 ea 07/23/24 verapamil 120 mg 24 hr 120 mg PO DAILY #90 caps 07/24/24 capsule,extended release tamsulosin 0.4 mg capsule 0.8 mg (2 x 0.4 mg) PO DAILY #180 08/02/24 caps pregabalin 150 mg capsule (Lyrica) 150 mg PO BID #180 caps 08/24/24 celecoxib 200 mg capsule 200 mg PO BID PRN pain #180 caps 09/11/24 tramadol 50 mg tablet 50 mg PO BID PRN pain #30 tabs 09/18/24 Allergies Allergy/AdvReac Type Severity Reaction Status Date / Time Beta-Blockers Allergy Unknown Verified 09/19/24 11:04 (Beta-Adrenergic Bloc diphenhydramine Allergy Unknown Verified 09/19/24 11:04 Review of Systems <Sherry Flores PA-C - Last Filed: 09/19/24 17:13> Review of Systems Narrative: See HPI Patient History <Sherry Flores PA-C - Last Filed: 09/19/24 17:13> Medical History Encounter for subsequent annual wellness visit (AWV) in Medicare patient BPH w urinary obs/LUTS BPH (benign prostatic hyperplasia) Arthritis Subclinical hypothyroidism Hyperlipidemia Marijuana use RLS (restless legs syndrome) PTSD (post-traumatic stress disorder) Agent orange exposure Peripheral neuropathy Social History Smoking Status: Never smoker Smoking Status: Never smoker alcohol intake frequency: holidays/special occasions only Substance Use Type: marijuana Exam <Sherry Flores PA-C - Last Filed: 09/19/24 17:13> Narrative Exam Narrative: GENERAL: [74] year old patient appears stated age. Well-developed patient, in mild distress. HEAD: There are 2 well healing slightly scabbed approximately 1.5 cm horizontal lacerations in the patient's posterior scalp. Sandy present x 2 in each laceration. Otherwise Atraumatic. Normocephalic. EYES: Pupils equal round and reactive. Extraocular motions intact. No scleral icterus. No injection or drainage. ENT: Nose without bleeding, purulent drainage. Airway patent. NECK: Trachea midline. CARDIOVASCULAR: Regular rate and rhythm without murmurs, gallops, or rubs. RESPIRATORY: Clear to auscultation. Breath sounds equal bilaterally. No wheezes, rales, or rhonchi. EXTREMITIES: No edema or joint tenderness. BACK: Nontender without deformity or crepitance. No flank tenderness. NEURO: AOx3. SKIN: No rash or erythema of visible areas Initial Vital Signs Initial Vital Signs: Vital Signs Temperature 98.4 F 09/19/24 11:02 Pulse Rate 74 09/19/24 11:02 Respiratory Rate 18 09/19/24 11:02 Blood Pressure 149/70 H 09/19/24 11:02 Pulse Oximetry 96 09/19/24 11:02 Oxygen Delivery Method Room Air 09/19/24 11:02 <Nevaeh Adame MD - Last Filed: 09/20/24 07:29> Initial Vital Signs Initial Vital Signs: Vital Signs Temperature 98.4 F 09/19/24 11:02 Pulse Rate 74 09/19/24 11:02 Respiratory Rate 18 09/19/24 11:02 Blood Pressure 149/70 H 09/19/24 11:02 Pulse Oximetry 96 09/19/24 11:02 Oxygen Delivery Method Room Air 09/19/24 11:02 Course <Sherry Flores PA-C - Last Filed: 09/19/24 17:13> Vital Signs Vital signs: Vital Signs - 8 hr 09/19/24 11:02 09/19/24 12:36 Temperature 98.4 F Pulse Rate 74 77 Respiratory Rate 18 14 Blood Pressure 149/70 H 151/72 H Pulse Oximetry 96 98 Oxygen Delivery Method Room Air Room Air <Nevaeh Adame MD - Last Filed: 09/20/24 07:29> Vital Signs Vital signs: Vital Signs - 8 hr 09/19/24 11:02 09/19/24 12:36 Temperature 98.4 F Pulse Rate 74 77 Respiratory Rate 18 14 Blood Pressure 149/70 H 151/72 H Pulse Oximetry 96 98 Oxygen Delivery Method Room Air Room Air MDM - Recheck/Abnormal Lab/Rx <Sherry Flores PA-C - Last Filed: 09/19/24 17:13> Differential Diagnosis Differential diagnosis: Likely encounter for removal of sutures Medical Records Attestation: I reviewed the patient's medical records. MDM Narrative Medical decision making narrative: 74-year-old male presenting with concern for needing staple removal from his posterior scalp. Was seen in the emergency department 8 days ago. Reviewed the patient's chart. He has no complaints or concerns since that time and is doing well. 4 Sandy removed by RN without difficulty. Re-examined the patient after staple removal. Return precautions provided, follow-up plan discussed, all questions answered. Discharge Plan Departure Patient Disposition: Home Clinical Impression: Encounter for removal of sutures Instructions: DI for Suture Removal Activity Restrictions/Additional Instructions: *You have been diagnosed with [encounter for removal of sandy] *What to do: *Please continue to take your regular medications as directed. [ ] New medication prescriptions sent to your pharmacy: [ ] [ ] New medication written as a paper prescription [X ] No new medications given *Please follow up with your primary care provider in 2-3 days, call for an appointment. Let them know you were seen in the Emergency Department and that we ask that you be seen in follow up. We will electronically transmit a record of today's note if your PCP is in our system. You came into the emergency department today to have your sandy removed that were placed 8 days ago in the emergency department. Timing was appropriate for staple removal and this was performed by RN and you were evaluated by PA. please see the attached instructions regarding post staple/suture removal. Follow up with your PCP as needed. *If you do not have a primary care provider please contact the [facility] Resource line at [phone]. They will ask some questions about your medical history and help get you set up with a doctor in the community. *Return to Emergency Department if you should have any new, worsening or concerning symptoms, such as [fever greater than 101 F, shaking chills, worsening pain, persistent vomiting or other bothersome symptoms] Prescriptions: No Action ropinirole 2 mg tablet extended release 24 hr 2 mg PO DAILY Qty: 30 0RF Rx Instructions: take at bedtime verapamil 120 mg capsule,ext rel. pellets 24 hr 120 mg PO DAILY Qty: 90 3RF tamsulosin 0.4 mg capsule 0.8 mg PO DAILY Qty: 180 3RF pregabalin [Lyrica] 150 mg capsule 150 mg PO BID Qty: 180 1RF celecoxib 200 mg capsule 200 mg PO BID PRN (Reason: pain) Qty: 180 3RF Rx Instructions: with food tramadol 50 mg tablet 50 mg PO BID PRN (Reason: pain) Qty: 30 5RF Rx Instructions: to last 30 days ropinirole 1 mg tablet 2 mg PO ONCE (DME) Disabled Parking Permit See Rx Instructions .ROUTE .MEDSUPPLY Qty: 1 0RF Rx Instructions: I find this patient to be medically disabled and qualified for Disabled Parking as indicated on the accompanying Disabled Parking Application for Individuals. ondansetron 4 mg tablet,disintegrating 4 mg PO Q8H PRN (Reason: nausea and vomiting) Qty: 10 0RF Referrals: Roberto Portillo DO [Primary Care Provider] - Stand Alone Forms: Patient Portal/API/Survey ED Sign-out <Nevaeh Adame MD - Last Filed: 09/20/24 07:29> Cosign ED Attending Cosmindyature Attestation: I was immediately available in the department for consultation throughout this patient's visit. Nevaeh Adame MD
[2024-09-19 12:36] VITALS: BP 151/72; PULSE 77; RESP 14; O2SAT 98
== END 2024-09-19 12:38 | disposition home or self-care (01) ==
PROVIDERS: Emergency Provider Student in an Organized Health Care Education/Training Program; PCP Family Medicine
DX: Z48.02 Encounter for removal of sutures (principal)
CPT/HCPCS: 99281

== ENCOUNTER → 2025-02-13 12:06 | Outpatient (CLI) | payer OTHER, MEDICAID, SELFPAY ==
--- NOTE | 2025-02-13 12:07 | DI.RAD.S_ITS ---
PROCEDURE: XR FOOT RT MIN 3V INDICATIONS: pain, swelling TECHNIQUE: 3 views of the foot were acquired. COMPARISON: [facility], , XR FOOT RT MIN 3V, 04/05/2023, 10:27. FINDINGS: Bones: No fractures or dislocations. No suspicious bony lesions. Interphalangeal joint space narrowing. This is most prominent in the fourth PIP joint. Soft tissues: No tibiotalar joint effusion. Achilles tendon appears normal. Dorsal foot swelling. IMPRESSION: Dorsal foot swelling without underlying fracture. Interphalangeal osteoarthritis. Dictated by: Yury Spear M.D. on 02/13/2025 at 16:14 Approved by: Yury Spear M.D. on 02/13/2025 at 16:21
--- NOTE | 2025-02-13 12:07 | DI.RAD.S_ITS ---
PROCEDURE: XR ANKLE RT MIN 3V INDICATIONS: pain, swelling TECHNIQUE: 3 views of the ankle were acquired. COMPARISON: None. FINDINGS: Bones: Age indeterminate avulsion injury to the medial malleolus. Soft tissues: Large tibiotalar joint effusion. Achilles tendon appears normal. Ankle swelling is present. IMPRESSION: Age indeterminate avulsion injury of the medial malleolus, with associated ankle swelling and large tibiotalar effusion. Internal derangement is a consideration as well. Dictated by: Yury Spear M.D. on 02/13/2025 at 16:09 Approved by: Yury Spear M.D. on 02/13/2025 at 16:10
[2025-02-13 13:19] LABS: Hematocrit 44.2 % (41-53); Mean Corpuscular HGB Conc 34.1 % (30-36); Mean Corpuscular Hemoglobin 31.2 PG (26-34); Mean Corpuscular Volume 91.6 fL (80-100); Platelet Count 160 X10^3/uL (150-400); Red Blood Cell Count 4.82 X10^6/uL (4.5-5.9); Red Cell Distribution Width 14.5 % (11.6-14.8); White Blood Cell Count 7.6 X10^3/uL (4.5-11.0)
[2025-02-13 13:44] LABS: Alanine Aminotransferase 25 IU/L (<50); Albumin 4.3 g/dL (3.5-5.0); Albumin Globulin Ratio 1.6 (1.0-2.8); Alkaline Phosphatase 81 U/L (38-126); Aspartate Aminotransferase 27 IU/L (17-59); BUN Creatinine Ratio 28.2 (6-22); Bilirubin Total 0.6 mg/dL (0.2-1.3); Blood Urea Nitrogen 20 mg/dL (9-20); Calcium 9.5 mg/dL (8.4-10.2); Carbon Dioxide 23 mmol/L (22-32); Chloride 108 mmol/L (98-107); Cholesterol 135 mg/dL (140-199); Estimated Glomerular Filt Rate > 60 mL/min (>60); Globulin 2.7 g/dL (1.7-4.1); Glucose 102 mg/dL (70-99); HDL Cholesterol 45 mg/dL (40-60); HEMOLYSIS < 15 (0-50); LDL Cholesterol Calculated 74 mg/dL (<100); Potassium 4.5 mmol/L (3.4-5.1); Sodium 139 mmol/L (137-145); Triglycerides 82 mg/dL (35-150); Uric Acid 3.8 mg/dL (3.5-8.5)
[2025-02-13 13:46] LABS: Erythrocyte Sedimentation Rate 16 MM/HR (0-15)
== END ==
PROVIDERS: PCP Family Medicine; Referring Provider Family Medicine; Visit Provider Family Medicine
DX: M19.071 Primary osteoarthritis, right ankle and foot (principal); M25.471 Effusion, right ankle; M25.571 Pain in right ankle and joints of right foot; B35.3 Tinea pedis; M25.473 Effusion, unspecified ankle; B07.0 Plantar wart
CPT/HCPCS: 36415; 73610; 73630; 80053; 80061; 84550; 85027; 85651; 86140

== ENCOUNTER → 2025-02-28 14:44 | Outpatient (CLI) | payer OTHER, MEDICAID, SELFPAY ==
--- NOTE | 2025-02-28 14:46 | DI.MRI.S_ITS ---
PROCEDURE: MR ANKLE RT WO CON INDICATIONS: pain, effusion TECHNIQUE: Noncontrast sagittal T1 spin echo and T2 fast spin echo with fat saturation, axial proton density fast spin echo and T2 fast spin echo with fat saturation, coronal T1 spin echo and T2 fast spin echo with fat saturation through the ankle/hindfoot. COMPARISON: [facility], CR, XR ANKLE RT MIN 3V, 02/13/2025, 12:06. FINDINGS: Image quality: Excellent. Bones and joints: Mild edema and cystic changes at the sustentaculum tale I and to a lesser extent the lateral talar process likely related to subtalar degenerative changes. Mild sagging of the midfoot is suspicious for pes planus. Degenerative changes are seen at the talonavicular joint and naviculocuneiform articulations with subchondral edema and small marginal osteophytes. No hindfoot coalitions. No osteochondral injuries of the talar dome. Medial structures: Deep fibers of the deltoid ligament are intact. Mild medial bowing of the tibiospring ligament and superior medial band of the spring ligament around the the talar head. Mild posterior tibialis tenosynovitis. The flexor digitorum longus and flexor hallucis longus tendons are intact. The posterior tibial neurovascular bundle appears normal within the tarsal tunnel, without extrinsic mass effect. Lateral structures: Remote prior low-grade sprain of the anterior tibiofibular ligament. Posterior tibiofibular ligament is intact. Chronic complete tearing of the anterior talofibular ligament and likely the calcaneofibular ligament. Chronic low-grade sprain of the posterior talofibular ligament. The peroneus longus and brevis tendons demonstrate moderate tendinosis. There is effacement of the normal fat signal in the sinus tarsi. Anterior structures: Fluid adjacent to the distal anterior tibialis tendon is suspicious for tenosynovitis versus focal ganglion cysts. The area of fluid measures approximately 22 x 9 x 26 mm. Small ganglion cyst dorsal to the naviculocuneiform articulations measures 10 x 5 x 6 mm. Extensor hallucis longus and extensor digitorum longus tendons are intact. Posterior and plantar structures: Achilles tendon is intact. The proximal plantar fascia is mildly thickened without surrounding edema. Mild grade 2 fatty infiltration of the visualized musculature without disproportionate atrophy of the abductor digiti minimi muscle to suggest Lopez neuropathy. IMPRESSION: 1. Mild sagging of the midfoot is suspicious for pes planus. Moderate degenerative changes at the subtalar, talonavicular, naviculocuneiform articulations with subchondral edema and cystic changes. 2. Chronic complete tearing of the anterior talofibular ligament and likely the calcaneofibular ligament. Remote prior low-grade sprain of the anterior tibiofibular ligament. 3. Moderate peroneus brevis and longus tendinosis. 4. Medial bowing of the tibiospring ligament in the superior medial band of the spring ligament around the talar head. 5. Mild distal posterior tibialis tenosynovitis. 6. Fluid collection adjacent to the tibialis anterior insertion may be secondary to tenosynovitis or a ganglion cyst that measures up to 26 mm in length. Small ganglion cyst dorsal to the naviculocuneiform articulation measures up to 10 mm. 7. Mild chronic proximal plantar fasciitis. Approved by: Can Herrera M.D. on 03/01/2025 at 15:54
== END ==
LOC: MRI 14:46
PROVIDERS: PCP Family Medicine; Referring Provider Family Medicine; Visit Provider Family Medicine
DX: S93.491A Sprain of other ligament of right ankle, initial encounter (principal); S93.431A Sprain of tibiofibular ligament of right ankle, initial encounter; M65.871 Other synovitis and tenosynovitis, right ankle and foot; M67.471 Ganglion, right ankle and foot; M72.2 Plantar fascial fibromatosis; M25.471 Effusion, right ankle; M25.571 Pain in right ankle and joints of right foot; X58.XXXA Exposure to other specified factors, initial encounter
CPT/HCPCS: 73721